=== PATIENT | male | born 1970 | race African-American/Black ===

== ENCOUNTER 2018-10-24 14:27 | Emergency (ER) | payer MEDICAID ==
[~2018-10-24] VITALS: Ht 170.2 cm; Wt 68.0 kg
[2018-10-24 14:30] VITALS: BP_SYST 127
[2018-10-24] MEDS ORDERED: BACITRACIN 1 GM OINT TP ONE (14:45)
[2018-10-24 15:15] VITALS: BP_SYST 127
== END 2018-10-24 15:15 ==
LOC: SED 14:27
DX: M79.601 Pain in right arm (principal); M25.561 Pain in right knee; Y04.0XXA Assault by unarmed brawl or fight, initial encounter; Y93.89 Activity, other specified; Y92.89 Other specified places as the place of occurrence of the external cause; Y99.8 Other external cause status
CPT/HCPCS: 99283; J7030